=== PATIENT | female | born 1990 | race Caucasian/White ===

== ENCOUNTER 2017-01-27 08:19 | Emergency (ER) | payer MEDICAID ==
[~2017-01-27] VITALS: Ht 172.7 cm; Wt 61.2 kg
[2017-01-27 08:25] VITALS: BP_SYST 113
[2017-01-27] MEDS ORDERED: levETIRAcetam 500 MG TABLET PO ONE (08:45)
[2017-01-27] MEDS ORDERED: KETOROLAC TROMETHAMINE 30 MG VIAL IVP ONE (08:45)
[2017-01-27] MEDS ORDERED: ONDANSETRON HCL 4 MG/2 ML VIAL IVP ONE (09:00)
[2017-01-27 09:21] LABS: BASOPHILS % (AUTO) 0.3 % (0.0-2.0); EOSINOPHILS # (AUTO) 0.1 K/uL (0.0-0.4); EOSINOPHILS % (AUTO) 0.4 % (0.0-4.0); HEMOGLOBIN 13.1 g/dL (12.0-16.0); LYMPHOCYTES # (AUTO) 0.6 K/uL (1.0-5.5); LYMPHOCYTES % (AUTO) 4.2 % (20.5-51.5); MEAN CORPUSCULAR HEMOGLOBIN 32 pg (27-31); MEAN CORPUSCULAR HGB CONC 34 % (32-36); MEAN CORPUSCULAR VOLUME 94 fL (79.0-98.0); MONOCYTES # (AUTO) 0.8 K/uL (0.0-1.0); MONOCYTES % (AUTO) 6.2 % (1.7-9.3); NEUTROPHILS % (AUTO) 88.9 % (40.0-70.0); PLATELET COUNT (AUTO) 267 K/uL (130-430); RED BLOOD CELL COUNT(AUTO) 4.16 MIL/uL (4.2-6.2); RED CELL DISTRIBUTION WIDTH 11.9 % (9.0-15.0); WHITE BLOOD COUNT (AUTO) 13.5 K/uL (4.8-10.8)
[2017-01-27 09:31] LABS: CALCIUM 8.7 mg/dL (8.4-11.0); CREATININE 0.66 mg/dL (0.55-1.30); POTASSIUM 3.9 mmol/L (3.5-5.1)
[2017-01-27 09:45] LABS: ALBUMIN 3.9 g/dL (3.4-4.8); TOTAL BILIRUBIN 1.1 mg/dL (0.0-1.0)
[2017-01-27 10:04] VITALS: BP_SYST 113
== END 2017-01-27 10:04 | disposition home or self-care (01) ==
LOC: SED 08:19
DX: G40.909 Epilepsy, unspecified, not intractable, without status epilepticus (principal)
CPT/HCPCS: 36415; 80053; 81025; 83605; 83735; 85025; 93005; 96374; 96375; 99285; J1885; J2405

== ENCOUNTER 2021-03-29 18:18 | Emergency (ER) | payer MEDICAID, SELFPAY ==
[~2021-03-29] VITALS: Ht 167.6 cm; Wt 81.6 kg
[2021-03-29 18:18] VITALS: BP_SYST 118
--- NOTE | 2021-03-29 18:18 | NUR ---
Patient to ER bed 01 for evaluation. Side rails up.
--- NOTE | 2021-03-29 18:20 | NUR ---
patient brought in als from in front of a liquor store holding an alcoholic beverage in hand acting beligerent. Bystander called 911. Patient arrived in room unable to follow commands, yelling and screaming " I need to pee." Patient assisted to bedside commode and urine sent to lab. Patient attempting to get out of bed. Security at bedside. Patient instructed to stay in bed. Patient refusing all questions.
[2021-03-29] MEDS ORDERED: LORazepam 2 MG/ML VIAL IVP ONE ×2 (18:45→19:00)
--- NOTE | 2021-03-29 20:05 | NUR ---
Received report from Radha RENAE Pt resting comfortably in bed Soft restraints removed as pt is calm at this time VSS Will continue to monitor
[2021-03-29 23:45] VITALS: BP_SYST 120
--- NOTE | 2021-03-29 23:46 | NUR ---
Patient given written and verbal discharge instructions and verbalizes understanding. ER MD discussed with patient the results and treatment provided. Patient in stable condition. ID arm band removed. IV catheter removed intact and dressing applied, no active bleeding. Opportunity for questions provided and answered. Boyfriend accompanied pt out of ED
== END 2021-03-29 23:42 | disposition home or self-care (01) ==
LOC: SED 18:18
DX: F10.129 Alcohol abuse with intoxication, unspecified (principal)
CPT/HCPCS: 96374; 96376; 99284; J2060

== ENCOUNTER 2022-04-04 05:29 | Emergency (ER) | payer MEDICAID ==
[~2022-04-04] VITALS: Ht 172.7 cm; Wt 65.8 kg
[2022-04-04 05:45] VITALS: BP_SYST 148
--- NOTE | 2022-04-04 05:50 | NUR ---
Seizure precautions in place. Seizure pads applied to gurney. Side rails up.
--- NOTE | 2022-04-04 05:50 | NUR ---
Placed in room 2 . Placed on case monitor, blood pressure machine and pulse oximeter. To gown for exam. Side rails up. Report given to BILL RENAE.
--- NOTE | 2022-04-04 06:00 | NUR ---
Pt changed into gown and placed on monitor at this time. Assisting assigned primary nurse.
--- NOTE | 2022-04-04 06:10 | NUR ---
Patient presents to ED from home with c/o witnessed gran mal seizure x1 day. Patient reports pain 8/10 at this time. Patient reports last seizure was x1 week ago and previously 4 years ago. Patient reports she used to take Keppra medication since age 13; stopped taking seizure medication x4 years ago. Patient A/Ox4, VSS, ambulatory, resp even and unlabored. Nad noted at this time. ER MD Pike made aware.
--- NOTE | 2022-04-04 06:10 | NUR ---
Blood sent to lab at this time.
[2022-04-04 06:23] LABS: BASOPHILS % (AUTO) 0.3 % (0.0-2.0); EOSINOPHILS % (AUTO) 0.2 % (0.0-4.0); HEMATOCRIT 40.6 % (36-48); HEMOGLOBIN 13.8 g/dL (12.0-16.0); LYMPHOCYTES # (AUTO) 0.9 K/uL (1.0-5.5); LYMPHOCYTES % (AUTO) 7.6 % (20.5-51.5); MEAN CORPUSCULAR HEMOGLOBIN 32 pg (27-31); MEAN CORPUSCULAR HGB CONC 34 % (32-36); MEAN CORPUSCULAR VOLUME 94 fL (79.0-98.0); MONOCYTES # (AUTO) 0.8 K/uL (0.0-1.0); MONOCYTES % (AUTO) 6.4 % (1.7-9.3); NEUTROPHILS # (AUTO) 10.4 K/uL (1.8-7.7); NEUTROPHILS % (AUTO) 85.5 % (40.0-70.0); PLATELET COUNT (AUTO) 254 K/uL (130-430); RED BLOOD CELL COUNT(AUTO) 4.33 MIL/uL (4.2-6.2); WHITE BLOOD COUNT (AUTO) 12.2 K/uL (4.8-10.8)
--- NOTE | 2022-04-04 06:23 | NUR ---
MONE Pike at bedside.
[2022-04-04] MEDS ORDERED: KETOROLAC TROMETHAMINE 15 MG VIAL IVP ONE (06:30)
[2022-04-04] MEDS ORDERED: levETIRAcetam 1,500 MG in NS 85 ML IV ONE (06:30)
[2022-04-04 06:48] LABS: CALCIUM 8.8 mg/dL (8.4-11.0); CREATININE 0.65 mg/dL (0.55-1.30)
[2022-04-04 06:54] LABS: BILIRUBIN,URINE NEGATIVE (NEGATIVE); BLOOD, URINE 1+ (NEGATIVE); CLARITY/URINE CLEAR (CLEAR); COLOR,URINE YELLOW (YELLOW); GLUCOSE,URINE NEGATIVE (NEGATIVE); KETONES,URINE NEGATIVE (NEGATIVE); LEUKOCYTE ESTERASE ,URINE NEGATIVE (NEGATIVE); NITRITE, URINE NEGATIVE (NEGATIVE); PROTEIN URINE NEGATIVE (NEGATIVE); UROBILINOGEN,URINE 0.2 (0.2-1.0)
[2022-04-04] MEDS ORDERED: IBUP-1969 PO (07:03)
[2022-04-04] MEDS ORDERED: LEVE500T9 PO (07:03)
--- NOTE | 2022-04-04 07:07 | NUR ---
Report given to OC Ghosh; assuming patient cares at this time.
--- NOTE | 2022-04-04 07:09 | NUR ---
RECEIVED PT FROM OC KHAN. ASSUMED CARE.
--- NOTE | 2022-04-04 07:20 | NUR ---
DR. WESTFALL AT BEDSIDE TO DISCUSS POC.
[2022-04-04 07:21] LABS: BACTERIA,URINE RARE /HPF (None Seen); MUCUS,URINE 1+ /LPF (None Seen); RBC,URINE 0-3 /HPF (0-3); WBC,URINE 0-3 /HPF (0-3)
[2022-04-04 07:28] VITALS: BP_SYST 132
--- NOTE | 2022-04-04 07:29 | NUR ---
Patient given written and verbal discharge instructions and verbalizes understanding. ER MD discussed with patient the results and treatment provided. Patient in stable condition. ID arm band removed. IV catheter removed intact and dressing applied, no active bleeding. Rx of MOTRIN, KEPPRA given. Patient educated on pain management and to follow up with PMD. Pain Scale 0/10. Opportunity for questions provided and answered. Medication side effect fact sheet provided.
== END 2022-04-04 07:29 | disposition home or self-care (01) ==
LOC: SED 05:29
DX: R56.9 Unspecified convulsions (principal); M79.18 Myalgia, other site; R51.9 Headache, unspecified; R68.84 Jaw pain; F10.90 Alcohol use, unspecified, uncomplicated; Z79.899 Other long term (current) drug therapy; Y90.6 Blood alcohol level of 120-199 mg/100 ml
CPT/HCPCS: 99284; 96365; 96375; 80048; 81000; 85025; 36415; 93005; 81025; J1885; J1953

== ENCOUNTER 2023-05-19 02:30 | Emergency (ER) | payer MEDICAID ==
[~2023-05-19] VITALS: Ht 172.7 cm; Wt 63.5 kg
[~2023-05-19 02:30] MED LIST: IBUP-1969 PO; LEVE500T9 PO
[2023-05-19 02:33] VITALS: BP_SYST 124; PULSE 101; RESP 14; TEMP 98.5; O2SAT 98
[2023-05-19 02:46] VITALS: BP_SYST 124; PULSE 101; RESP 14; TEMP 98.5; O2SAT 98
== END 2023-05-19 02:46 | disposition home or self-care (01) ==
LOC: SED 02:30
DX: Z02.89 Encounter for other administrative examinations (principal); Z79.899 Other long term (current) drug therapy
CPT/HCPCS: 99283